=== PATIENT | male | born 1990 | race Caucasian/White ===

== ENCOUNTER 2021-08-08 12:19 | Emergency (ER) | payer BC, SELFPAY ==
[2021-08-08 12:29] VITALS: BP 170/77; PULSE 94; RESP 16; TEMP 36.7; O2SAT 100
[2021-08-08 13:03] LABS: Basophils Percent Auto 0.4 % (0.2-1.2); Eosinophils Percent Auto 0.8 % (0-4.4); Hematocrit 44.1 % (42.0-52.0); Hemoglobin 14.9 g/dL (14.0-18.0); Immature Granulocyte Absolute 0.02 K/mm3 (0.00-0.031); Immature Granulocyte Percent A 0.4 % (0-0.5); Lymphocytes Absolute Auto 1.84 K/mm3 (0.9-3.2); Lymphocytes Percent Auto 35.2 % (18.3-44.2); Mean Corpuscular HGB Conc 33.8 g/dl (32-36); Mean Corpuscular Hemoglobin 31.4 pg (26-34); Mean Corpuscular Volume 92.8 fl (80-100); Mean Platelet Volume 10.5 fl (7.4-10.4); Monocytes Absolute Auto 0.6 K/mm3 (0.1-0.6); Monocytes Percent Auto 10.7 % (2.6-8.5); Neutrophils Absolute Auto 2.8 K/mm3 (1.3-6.7); Neutrophils Percent Auto 52.5 % (45.5-73.1); Platelet Count Result 200 k/mm3 (150-375); Red Blood Count 4.75 M/mm3 (4.6-6.20); Red Cell Distribution Width 12.9 % (11.5-14.5); White Blood Count 5.2 K/mm3 (4.5-10.0)
--- NOTE | 2021-08-08 13:07 | ED.GENADULT ---
HPI - General Adult General Chief complaint: GI Bleed Stated complaint: Blood in stool Time Seen by Provider: 08/08/21 13:07 History of Present Illness HPI narrative: Patient is a 31-year-old male otherwise healthy who comes into the ED today because of blood in stool. Patient reports has had to balance today and has seen some blood in in both stools and on toilet paper both times. Says that the blood looks a little dark. Denies any black tar-like stools. Denies any abdominal pain or nausea or vomiting. He denies any rectal pain. No previous history of similar symptoms. He denies any history of hemorrhoids and does not feel anything that feels like a hemorrhoid in his rectum. Knows that he is on a full dose aspirin. Says he has been on this for a little over a month since he had COVID-19 as a recommendation to prevent clots. Does not have constipation issues. Related Data Home Medications Medication Instructions Recorded Confirmed aspirin 325 mg PO DAILY 08/08/21 08/08/21 Allergies Allergy/AdvReac Type Severity Reaction Status Date / Time No Known Allergies Allergy Mild Verified 08/08/21 13:15 Review of Systems Constitutional: Constitutional: Reports as per HPI, Denies fever(s), Denies night sweats and Denies weakness Cardiovascular: Cardiovascular: Denies chest pain, Denies edema, Denies leg edema, Denies dyspnea and Denies orthopnea Respiratory: Respiratory: Denies cough and Denies dyspnea Gastrointestinal: Gastrointestinal: Denies abdominal pain, Reports hematochezia, Denies constipation, Denies diarrhea, Denies nausea and Denies vomiting Musculoskeletal: Musculoskeletal: Denies abnormal gait, Denies back pain, Denies numbness and Denies tingling Neurologic: Denies Abnormal speech present, Denies abnormal gait, Denies numbness, Denies tingling and Denies weakness Psychiatric: Psychiatric: Denies homicidal ideation and Denies suicidal ideation Exam Const: General: cooperative, healthy appearing, comfortable, no acute distress, well developed, alert, awake and Physically active Orientation/consciousness: patient oriented x3 HENMT: Head: normal to inspection, normocephalic and atraumatic Ears: external ears normal General nose exam: Normal external nose present Eyes: Pupils: Equal, round and reactive pupils present EOM: EOMs intact bilaterally Neck: Neck: normal visual inspection Chest: Chest palpation & inspection: normal inspection of the chest and no tenderness Resp: Effort & Inspection: normal respiratory effort and able to speak in complete sentences Auscultation: clear to auscultation bilaterally Cardio: Rate: regular rate Rhythm: regular rhythm GI: Inspection: normal to inspection GI Palp: No abdominal tenderness Other: No abdominal tenderness to deep palpation. External rectum is normal. No external or internal hemorrhoids. No palpable fissures. : General: Yes no CVA tenderness Back/Spine/Pelvis: Back: no CVA tenderness Skin: General skin exam: normal color and no rashes or lesions noted Lesions: no lesions Neuro: General: patient oriented x3, no focal motor deficits and CN's II-XI intact bilaterally Cranial nerves: Yes Equal, round and reactive pupils present Speech: No Abnormal speech present Extrem: General: normal to inspection and full ROM Psych: Appearance: grossly normal and well kempt Mental Status: mental status grossly normal Speech and movement: Normal speech and movement present Affect: normal affect Thought process: Normal thought process present Course Vital Signs Vital signs: Vital Signs Temperature 36.7 C 08/08/21 12:29 Pulse Rate 94 08/08/21 12:29 Respiratory Rate 16 08/08/21 12:29 Blood Pressure 170/77 H 08/08/21 12:29 Pulse Oximetry 100 08/08/21 12:29 Temperature 36.7 C 08/08/21 12:29 Pulse Rate 81 08/08/21 14:03 Respiratory Rate 18 08/08/21 14:03 Blood Pressure 132/93 H 08/08/21 14:03 Pulse Oximetry 100 08/08/21 14
[2021-08-08 13:16] VITALS: BP 146/79; BP 146/89; PULSE 72; PULSE 80
[2021-08-08 13:17] VITALS: BP 134/87; PULSE 84
[2021-08-08 13:21] LABS: INR 0.9; Prothrombin Time 12.4 Seconds (11.1-14.7)
[2021-08-08 13:22] LABS: Partial Thromboplastin Time 27.6 SECONDS (22.3-36.8)
[2021-08-08 13:31] LABS: Alanine Aminotransferase 52 U/L (4-50); Albumin Level 4.5 g/dL (3.5-5.1); Alkaline Phosphatase 56 U/L (38-126); Anion Gap 8 mmol/L (8-16); Aspartate Amino Transferase 34 U/L (17-59); Bilirubin,Total 0.8 mg/dL (0.2-1.3); Blood Urea Nitrogen 11 mg/dL (9-20); Calcium 9.1 mg/dL (8.4-10.2); Carbon Dioxide 26 mmol/L (22-30); Chloride 106 mmol/L (98-107); Estimated CRCL calculation 130 ml/min; Estimated Glomerular Filt Rate > 60; Glucose 96 mg/dL (65-110); Potassium 5.1 mmol/L (3.4-5.0); Sodium 140 mmol/L (137-145)
[2021-08-08 14:03] VITALS: BP 132/93; PULSE 81; RESP 18; O2SAT 100
[2021-08-08 15:17] VITALS: BP 131/86; PULSE 70; RESP 16; O2SAT 98
== END 2021-08-08 15:18 | disposition home or self-care (01) ==
PROVIDERS: Emergency Medicine; Emergency Provider Emergency Medicine
DX: K92.1 Melena (principal); Z79.82 Long term (current) use of aspirin; Z86.16 Personal history of COVID-19
CPT/HCPCS: 36415; 80053; 85025; 85610; 85730; 86850; 86900; 86901; 99283

== ENCOUNTER 2022-08-28 17:24 | Observation (INO) | payer BC, SELFPAY ==
--- NOTE | ~2022-08-28 | CT_ITS ---
EXAMINATION: CT abdomen pelvis w con DATE: 08/28/2022 20:08 INDICATION: umbilical swelling and pain TECHNIQUE: Computed tomography (CT) of the abdomen and pelvis was performed with 100 mL Omnipaque-350 intravenous contrast. Automated exposure control and iterative reconstruction technique were employe d. The dose-length product was 888.75 mGy-cm. COMPARISON: None. FINDINGS: Lower thorax: Minimal left basilar atelectasis/scar Liver: Hepatomegaly. Somewhat heterogeneous fatty infiltration, with increased deposition near the li gamentum teres. Biliary/Gallbladder: Gallbladder is normal. No bile duct dilation. Pancreas: No mass or duct dilation. Spleen: Normal. Adrenals:No mass. Kidneys: No mass, stone, or hydronephrosis. GI tract: No small or large bowel dilation. Normal appendix. Diverticulosis without diverticulitis. Mesentery/Peritoneum: No ascites, mass, or free air. Retroperitoneum: No mass. Pelvis: Bladder wall thickening, likely due to lack of distention.. Soft Tissues: Uncomplicated appearing bilateral fat-containing inguinal hernias. 1.2 cm inflamed and fat-containing umbilical hernia Bones: No acute osseous finding. IMPRESSION: Hepatomegaly. Focal and diffuse hepatic steatosis. Inflamed, fat-containing umbilical hernia. Reviewed, dictated and finalized at location K. IMPRESSION: Hepatomegaly. Focal and diffuse hepatic steatosis. Inflamed, fat-containing umb ilical hernia.
[2022-08-28 18:02] VITALS: BP 173/93; PULSE 101; RESP 16; TEMP 36.9; O2SAT 100
--- NOTE | 2022-08-28 18:23 | ED.ABDPAIN ---
HPI - Abdominal Pain General Chief Complaint: Abdominal Pain Stated Complaint: abd pain Time Seen by Provider: 08/28/22 18:16 Source: patient and RN notes reviewed Mode of arrival: ambulatory Limitations: no limitations History of Present Illness HPI narrative: This is a 32 year old male who presents for evaluation of umbilical pain. He developed pain on Sunday and it has gradually worsened. He states he went to work but it was too painful. He states someone that was a PA suggested he come get CT abdomen. He denies fever, chill, nausea, vomiting or diarrhea. He has not taken any medication for pain. Related Data Home Medications Medication Instructions Recorded Confirmed aspirin 325 mg tablet 325 mg PO DAILY 08/08/21 08/08/21 Allergies Allergy/AdvReac Type Severity Reaction Status Date / Time No Known Allergies Allergy Mild Verified 08/28/22 18:07 Review of Systems Review of Systems: All systems reviewed & are unremarkable except as noted in HPI and below Constitutional: Constitutional: Denies chills, Denies fatigue and Denies fever(s) Cardiovascular: Cardiovascular: Denies chest pain Respiratory: Respiratory: Denies chest congestion and Denies dyspnea Gastrointestinal: Gastrointestinal: Reports abdominal pain, Denies diarrhea, Denies nausea and Denies vomiting Genitourinary: Genitourinary: Denies hematuria, Denies penile discharge and Denies testicular pain Integumentary/Breasts: Skin/Breast: Denies pruritus and Reports erythema PMFSH Past Medical History Medical History (Updated 08/28/22 @ 22:52 by Ekta Bocanegra MD) Patient denies medical problems Surgical History Surgical History (Updated 08/28/22 @ 22:49 by Ekta Bocanegra MD) No pertinent past surgical history Social History Social History (Updated 08/28/22 @ 22:49 by Ekta Bocanegra MD) Smoking status: Never smoker Exam Const: General: no acute distress and alert Nutritional Appearance: well nourished Orientation/consciousness: patient oriented x3 Limitations: no limitations HENMT: Head: normal to inspection Eyes: EOM: EOMs intact bilaterally Resp: Effort & Inspection: normal respiratory effort Cardio: Rate: regular rate Rhythm: regular rhythm Heart sounds: no murmurs GI: GI Palp: Yes Soft to palpation, Yes Tenderness to palpation present (GI) (tender umbilicus), No Guarding due to palpation present (GI), No Rigid due to palpation and Yes Hernia present (umbilical that his red and hard) Auscultation: normal bowel sounds Skin: Rashes: no rashes Other: umbilicus is red and firm, no drainage Neuro: General: patient oriented x3, moves all extremities and CN's II-XI intact bilaterally Cranial nerves: Yes Nystagmus not present Speech: normal speech Extrem: General: normal to inspection Psych: Mental Status: mental status grossly normal Affect: normal affect Attitude: cooperative Course Reevaluation(s) Reevaluation #1: Patient was given pain medication. I attemped to reduce but he was unable to tolerate. I spoke with Dr. Malhotra . PAtient would prefer admission vs follow up next week. Dr. Malhotra accepts patient to his service. NPO after midnight. Date: 08/28/22 Time: 22:50 Vital Signs Vital signs: Vital Signs Temperature 98.4 F 08/28/22 18:02 Pulse Rate 101 H 08/28/22 18:02 Respiratory Rate 16 08/28/22 18:02 Blood Pressure 173/93 H 08/28/22 18:02 Pulse Oximetry 100 08/28/22 18:02 Oxygen Delivery Room Air 08/28/22 18:02 Temperature 98.4 F 08/28/22 18:02 Pulse Rate 87 08/28/22 22:52 Respiratory Rate 16 08/28/22 22:52 Blood Pressure 140/78 08/28/22 22:52 Pulse Oximetry 99 08/28/22 22:52 Oxygen Delivery Room Air 08/28/22 18:02 MDM - Abdominal Pain Lab Data Attestation: I reviewed the patient's lab results. Result diagrams: 08/28/22 18:41 08/28/22 20:00 Labs: Lab Results 08/28/22 08/28/22 08/28/22 Range/U
[2022-08-28 18:55] LABS: Basophils Percent Auto 0.5 % (0.2-1.2); Eosinophils Absolute Auto 0.1 K/mm3 (0-0.3); Eosinophils Percent Auto 0.9 % (0-4.4); Hematocrit 44.7 % (42.0-52.0); Hemoglobin 15.5 g/dL (14.0-18.0); Immature Granulocyte Absolute 0.03 K/mm3 (0.00-0.031); Immature Granulocyte Percent A 0.4 % (0-0.5); Lymphocytes Percent Auto 26.3 % (18.3-44.2); Mean Corpuscular HGB Conc 34.7 g/dl (32-36); Mean Corpuscular Hemoglobin 31.4 pg (26-34); Mean Corpuscular Volume 90.7 fl (80-100); Mean Platelet Volume 10.2 fl (7.4-10.4); Monocytes Percent Auto 12.1 % (2.6-8.5); Neutrophils Absolute Auto 4.8 K/mm3 (1.3-6.7); Neutrophils Percent Auto 59.8 % (45.5-73.1); Platelet Count Result 276 k/mm3 (150-375); Red Blood Count 4.93 M/mm3 (4.6-6.20); Red Cell Distribution Width 12.8 % (11.5-14.5)
[2022-08-28 18:59] LABS: Add Urine Microscopic? NO; Appearance Urine Clear (Clear); Bilirubin Urine Negative (Negative); Blood Urine Negative (Negative); Color Urine Yellow (Yellow); Glucose Urine UA Negative (Negative); Ketones Urine Negative (Negative); Leukocyte Esterase Ur Negative LEU/UL (Negative); Nitrate Urine Negative (Negative); Protein Urine Negative (Negative); Specific Grav Ur 1.021 (1.001-1.035); Urobilinogen Urine Negative mg/dL (<2.0)
[2022-08-28 20:01] LABS: Estimated CRCL calculation 144 ml/min; Estimated Glomerular Filt Rate > 60
[2022-08-28 20:01] LABS: Alanine Aminotransferase 69 U/L (6-50); Albumin Level 4.7 g/dL (3.5-5.1); Alkaline Phosphatase 56 U/L (38-126); Anion Gap 12 mmol/L (8-16); Aspartate Amino Transferase 39 U/L (17-59); Bilirubin,Total 0.6 mg/dL (0.2-1.3); Blood Urea Nitrogen 12 mg/dL (9-20); Carbon Dioxide 24 mmol/L (22-30); Chloride 105 mmol/L (98-107); Estimated CRCL calculation 144 ml/min; Estimated Glomerular Filt Rate > 60; Glucose 86 mg/dL (65-110); Lipase 94 U/L (23-300); Potassium 3.9 mmol/L (3.4-5.0); Sodium 141 mmol/L (137-145)
[2022-08-28] MEDS: KETOROLAC 30 MG/ML VIAL (*BKC) IV PUSH (20:17)
[2022-08-28] MEDS: ONDANSETRON INJ 4 MG/2 ML VIAL IV PUSH (21:57)
[2022-08-28] MEDS: HYDROmorphone HCL INJ (*CRX) 1 MG/ML SYR 0.5 MG IV PUSH (21:57)
[2022-08-28 22:52] VITALS: BP 140/78; PULSE 87; RESP 16; O2SAT 99
[2022-08-28 23:55] VITALS: BMI 31.8
--- NOTE | 2022-08-28 23:57 | ADMGEN ---
This patient, Shahram Miller, was admitted to Medical Room 342-01. Patient/family oriented to hospital policies and general routines including ID bracelet, bed and alarms, visiting hours, pain management, procedures, bathroom and other care routines, personal items, smoking policy, room service/diet, and visiting hours. Information on how to activate the Rapid Response Team has been discussed. Patient/Family are encouraged to report perceived risks to care and to ask questions if they do not understand what they are told or what they should do.
[2022-08-29] VITALS (13 sets, daily range): BP systolic 120–152; BP diastolic 66–97; PULSE 57–99; RESP 16–20; TEMP 36.2–37.8; O2SAT 95–100
[2022-08-29] MEDS: SODIUM CHLORIDE 0.9% IV 1,000 ML 125 ML IV CONT ×2 (08:38)
--- NOTE | 2022-08-29 12:22 | PM.IMHP ---
H&P: HPI History of Present Illness Date/Time: 08/29/22 12:22 Chief Complaint: Umbilical pain Narrative: Patient is a 32-year-old man who 3 days ago was watching television and having a couple of beers. When he got up he noticed some pain in the umbilicus. He did not think much of it but this pain persisted that day and the next day. He thought he had a strained muscle. He went to work yesterday and while at work started experiencing severe pain in the umbilical area. He came to the emergency room yesterday evening. He was noted to have tenderness and a bulge at the umbilical area. He had a CT scan which showed a fat containing incarcerated umbilical hernia with inflammation associated with the incarcerated fat. The emergency room physician attempted to reduce the hernia but was unable to do so due to pain. Patient was brought into the hospital. His pain has improved but it has not gone away. He was seen in the hospital in still has an incarcerated umbilical hernia. He is taken to surgery today for repair with mesh. Review of Systems Review of Systems: All systems reviewed & are unremarkable except as noted in HPI and below (HPI and those items noted below) Constitutional: Constitutional: Denies chills and Denies fever(s) Cardiovascular: Cardiovascular: Denies chest pain, Denies diaphoresis, Denies dyspnea and Denies paroxysmal nocturnal dyspnea Respiratory: Respiratory: Denies chest congestion, Denies cough and Denies dyspnea Integumentary/Breasts: Skin/Breast: Denies lesions and Denies rash PMFSH Past Medical History Medical History (Updated 08/28/22 @ 22:52 by Ekta Bocanerga MD) Patient denies medical problems Surgical History Surgical History (Updated 08/28/22 @ 22:49 by Ekta Bocanegra MD) No pertinent past surgical history Family History Family History (Updated 08/28/22 @ 23:58 by Shanelle Goldstein RN) Grandparent Heart disease Diabetes mellitus Social History Social History (Updated 08/28/22 @ 22:49 by Ekta Bocanegra MD) Smoking status: Never smoker Alcohol intake: current Drinks per week: 60 Substance use: never Spiritual care concerns: No Meds Home Medications and Allergies Home Medications Medication Instructions Recorded Confirmed Type No Home Medications 08/28/22 08/28/22 History Allergies Allergy/AdvReac Type Severity Reaction Status Date / Time No Known Allergies Allergy Mild Verified 08/28/22 18:07 Vital Signs Vital Signs - 24 hr 08/28/22 18:02 08/28/22 22:52 08/29/22 00:24 Temperature 36.9 C 36.5 C Pulse Rate 101 H 87 68 Respiratory Rate 16 16 18 Blood Pressure 173/93 H 140/78 152/88 H Pulse Oximetry 100 99 98 Oxygen Delivery Room Air 08/29/22 05:22 Temperature 36.2 C L Pulse Rate 68 Respiratory Rate 18 Blood Pressure 142/81 H Pulse Oximetry 98 Oxygen Delivery Exam Const: General: comfortable, no acute distress, alert and awake Nutritional Appearance: well nourished Orientation/consciousness: patient oriented x3 HENMT: Head: normocephalic and atraumatic Mouth: Yes Normal oral and palatal mucosa present Eyes: Conjunctivae: conjunctivae normal Pupils: Equal, round and reactive pupils present EOM: EOMs intact bilaterally Neck: Neck: normal visual inspection, no lymphadenopathy and nontender Resp: Effort & Inspection: normal respiratory effort Auscultation: clear to auscultation bilaterally Cardio: Rate: regular rate Rhythm: regular rhythm Heart sounds: no gallops, no murmurs and no rubs GI: Inspection: non-distended, scaphoid and visible herniation (Umbilical hernia, slightly reddened) GI Palp: Yes Soft to palpation, Yes Tenderness to palpation present (GI) (Umbilicus), No Hepatomegaly present, No Splenomegaly present and Yes Hernia present (Incarcerated umbilical hernia) Auscultation: Hypoactive bowel sounds present Skin: Lesions: no lesions Rashes: no rashes Neuro: General: no focal motor deficits an
--- NOTE | 2022-08-29 12:30 | WPDHPUPDATE1 ---
History and Physical Update Update Date/Time: 08/29/22 12:30 History and Physical has been reviewed, including an updated exam of the patient. There are NO changes in the patient's condition. Risks, benefits, and alternatives have been discussed and questions answered. Patient agrees to proceed with procedure.
[2022-08-29] MEDS: LACTATED RINGERS 1,000 ML 30 ML IV CONT (13:00)
--- NOTE | 2022-08-29 13:02 | PC.NURSE ---
Pt transferred to [facility] @ [id number]
--- NOTE | 2022-08-29 13:32 | WPDANESEPPF ---
Anes - Initial Pre Proc Eval Procedure: Operation Date: 08/29/22 14:00 Proposed Procedures p Repair Incarcerated Umbilical Herrnia with Mesh - Celestine Malhotra MD Date/Time: 08/29/22 13:32 Surgeon: Celestine Malhotra MD Pre Op Diagnosis: incarcerated umbilical hernia Patient Data Age: 32 Gender: M Height: 1.83 m Weight: 106.3 kg Last Vital Signs Temp 36.2 C L 08/29/22 05:22 Pulse 68 08/29/22 05:22 Resp 18 08/29/22 05:22 BP 142/81 H 08/29/22 05:22 Pulse Ox 98 08/29/22 05:22 O2 Del Method Room Air 08/28/22 18:02 Allergies Allergy/AdvReac Type Severity Reaction Status Date / Time No Known Allergies Allergy Mild Verified 08/28/22 18:07 Home Medications Medication Instructions Recorded Confirmed Type No Home Medications 08/28/22 08/28/22 History Laboratory Tests 08/28/22 08/28/22 08/28/22 18:41 18:46 19:45 WBC 8.0 K/mm3 K/mm3 (4.5-10.0) RBC 4.93 M/mm3 M/mm3 (4.6-6.20) Hgb 15.5 g/dL g/dL (14.0-18.0) Hct 44.7 % % (42.0-52.0) MCV 90.7 fl fl (80-100) MCH 31.4 pg pg (26-34) MCHC 34.7 g/dl g/dl (32-36) RDW 12.8 % % (11.5-14.5) Plt Count 276 k/mm3 k/mm3 (150-375) MPV 10.2 fl fl (7.4-10.4) Immature Gran % (Auto) 0.4 % % (0-0.5) Neut % (Auto) 59.8 % % (45.5-73.1) Lymph % (Auto) 26.3 % % (18.3-44.2) [place] % (Auto) 12.1 % H % (2.6-8.5) Eos % (Auto) 0.9 % % (0-4.4) Baso % (Auto) 0.5 % % (0.2-1.2) Lymph # (Auto) 2.10 K/mm3 K/mm3 (0.9-3.2) [place] # (Auto) 1.0 K/mm3 H K/mm3 (0.1-0.6) Eos # (Auto) 0.1 K/mm3 K/mm3 (0-0.3) Baso # (Auto) 0.0 K/mm3 K/mm3 (0.0-0.1) Abs Immat Gran (auto) 0.03 K/mm3 K/mm3 (0.00-0.031) Absolute Neuts (auto) 4.8 K/mm3 K/mm3 (1.3-6.7) Absolute Nucleated RBC 0.0 K/mm3 K/mm3 (0.0-0.012) Nucleated RBC % 0.0 % % (0.0-0.2) Sodium 141 mmol/L mmol/L (137-145) Potassium 3.9 mmol/L mmol/L (3.4-5.0) Chloride 105 mmol/L mmol/L (98-107) Carbon Dioxide 24 mmol/L mmol/L (22-30) Anion Gap 12 mmol/L mmol/L (8-16) BUN 12 mg/dL mg/dL (9-20) Creatinine 0.80 mg/dL mg/dL (0.7-1.3) Estim Creat Clear Calc 144 ml/min ml/min Estimated GFR > 60 (59 - ) Glucose 86 mg/dL mg/dL (65-110) Calcium 9.0 mg/dL mg/dL (8.4-10.2) Total Bilirubin 0.6 mg/dL mg/dL (0.2-1.3) AST 39 U/L U/L (17-59) ALT 69 U/L H U/L (6-50) Alkaline Phosphatase 56 U/L U/L (38-126) Total Protein 8.0 g/dL g/dL (6.3-8.2) Albumin 4.7 g/dL g/dL (3.5-5.1) Lipase 94 U/L U/L (23-300) Urine Color Yellow (Yellow) Urine Appearance Clear (Clear) Urine pH 6.0 (5.0-9.0) Ur Specific [place] 1.021 (1.001-1.035) Urine Protein Negative mg/dL mg/dL (Negative) Urine Glucose (UA) Negative mg/dL mg/dL (Negative) Urine Ketones Negative mg/dL mg/dL (Negative) Ur Blood (Man) Negative (Negative) Urine Nitrate Negative (Negative) Urine Bilirubin Negative (Negative) Urine Urobilinogen Negative mg/dL mg/dL (<2.0) Leukocyte Esterase Rfl Negative LEAH/UL LEAH/UL (Negative) 08/28/22 20:00 WBC RBC Hgb Hct MCV MCH MCHC RDW Plt Count MPV Immature Gran % (Auto) Neut % (Auto) Lymph % (Auto) [place] % (Auto) Eos % (Auto) Baso % (Auto) Lymph # (Auto) [place] # (Auto) Eos # (Auto) Baso # (Auto) Abs Immat Gran (auto) Absolute Neuts (auto) Absolute Nucleated RBC Nucleated RBC %
[2022-08-29] MEDS: ceFAZolin 2 GM/D5W 50 ML 2 GM/50 ML BAG IVPB (14:07)
[2022-08-29] MEDS: BUPIVACAINE/EPINEPHRINE 0.25% 50 ML VIAL 30 ML INFILTRATE (15:00)
--- NOTE | 2022-08-29 15:42 | W.PM.PROC2 ---
Procedure Note - Detailed Date of Procedure 08/29/22 Pre-op Diagnosis incarcerated umbilical hernia Post-op Diagnosis Same Procedure Performed Repair incarcerated umbilical hernia with 6.[address] underlay hernia mesh Surgeon Celestine Malhotra MD Sdc Teacher Kamille Romero, [employer] Anesthesia General and Local (0.25% Marcaine with epinephrine) Indications Patient presented to the emergency room last night with a painful bulge in the umbilicus. Both exam and CT scan showed an incarcerated umbilical hernia containing fat. It was unable to be reduced. Patient has been quite uncomfortable and was placed in the hospital. He is taken to surgery now for repair of incarcerated umbilical hernia with mesh Findings There was some very inflamed and probably necrotic hernia sac and properitoneal fat. The hernia defect was about 1.5 by 0.5 cm. Description of Procedure Patient was taken to surgery and induced into general anesthesia. The abdomen is prepped and draped. The proposed incision along the upper margin of the umbilicus was marked on the skin. Local was infiltrated into the skin and the deeper subcutaneous tissues. Incision was made and dissection was carried down through the subcutaneous. We dissected over to the umbilical hernia. There was a lot inflammation and edema there. I dissected around the hernia sac circumferentially. I then opened the hernia sac and divided it. There was a lot of edematous thickened tissue within the hernia sac. I divided some of the subcutaneous beyond the umbilical skin. I was then able to bring up the undersurface of the umbilical skin and I removed some inflammatory tissue that was likely the remnants of the hernia sac from the skin. These were sent to pathology. I then excised hernia sac from the fascial edges. I pulled up some necrotic omentum that had been incarcerated in the hernia and excised that. This was also submitted. The pathology specimen submitted was incarcerated hernia sac and contents. From there I placed a finger in the hernia defect. There were no adhesions in the area. I undermined the subcutaneous around the hernia defect. I infiltrated additional local all around the hernia defect. I chose the 6.[address] hernia mesh. This was folded and placed in the defect. Once in the defect it was flattened and position symmetrically. I then placed cranial and caudal transfascial sutures with 0 Ethibond. Each of these sutures was placed in such a fashion as to draw the edges of the hernia defect towards 1 another once the sutures were tied. Time the sutures showed that this did have the desired effect. I then placed right and left lateral transfascial sutures of 0 Ethibond to secure the mesh in these 2 directions. Finally the hernia defect was closed with [id number] mattress sutures of 0 Ethibond. Each of these sutures incorporated a bit of mesh as well. The repair looked quite secure. I used an 0 Vicryl suture to suture the umbilical skin to the fascia. I then used 3-0 Vicryl subcutaneous and subcuticular sutures in interrupted fashion. Finally the skin was approximated with subcuticular interrupted 4-0 Vicryl suture. The skin was finally closed with a running 4-0 Monocryl skin suture. The wound was dressed with Exofin surgical adhesive. The patient was awakened and taken to recovery in good condition. Sponge and needle counts were correct x2. Implants 6.[address] mesh Estimated Blood Loss -5.0 Urine Output 200 Drains No Packing No Pathology Yes (Incarcerated hernia sac and contents) Complications No immediate complications Condition Stable Disposition PACU [facility] Billing Surgery - Charge Forward: Surgery Billing (Repair incarcerated umbilical hernia with mesh)
--- NOTE | 2022-08-29 16:53 | PC.NURSE ---
Pt returned to room from post op [id number]
[2022-08-29] MEDS: LACTATED RINGERS 1,000 ML 100 ML IV CONT (17:14)
[2022-08-29] MEDS: HYDROcodone/acetaminophen (*CRX) 5-325 MG TABLET 1 TAB PO (17:21)
[2022-08-29] MEDS: MORPHINE SULFATE (*CRX) 4 MG/ML INJ IV PUSH (20:07)
[2022-08-29] MEDS: HYDROcodone/acetaminophen (*CRX) 10-325 MG TABLET 1 TAB PO (21:23)
[2022-08-30 00:59] VITALS: BP 138/71; PULSE 84; RESP 18; TEMP 36.4; O2SAT 97
[2022-08-30] MEDS: MORPHINE SULFATE (*CRX) 4 MG/ML INJ IV PUSH (01:03)
[2022-08-30] MEDS: HYDROcodone/acetaminophen (*CRX) 5-325 MG TABLET 1 TAB PO (01:37)
[2022-08-30 05:15] VITALS: BP 136/83; PULSE 83; RESP 19; TEMP 36.4; O2SAT 97
[2022-08-30 05:49] LABS: Hemoglobin 14.7 g/dL (14.0-18.0); Mean Corpuscular HGB Conc 34.2 g/dl (32-36); Mean Corpuscular Hemoglobin 31.5 pg (26-34); Mean Corpuscular Volume 92.1 fl (80-100); Platelet Count Result 263 k/mm3 (150-375); Red Blood Count 4.67 M/mm3 (4.6-6.20); Red Cell Distribution Width 12.4 % (11.5-14.5); White Blood Count 12.3 K/mm3 (4.5-10.0)
[2022-08-30 06:07] LABS: Anion Gap 9 mmol/L (8-16); Blood Urea Nitrogen 12 mg/dL (9-20); Carbon Dioxide 27 mmol/L (22-30); Chloride 100 mmol/L (98-107); Estimated CRCL calculation 144 ml/min; Estimated Glomerular Filt Rate > 60; Glucose 112 mg/dL (65-110); Potassium 4.1 mmol/L (3.4-5.0); Sodium 136 mmol/L (137-145)
--- NOTE | 2022-08-30 08:07 | PM.DS ---
DS: Admitting Diagnosis Discharge Date 08/30/2022 Admitting Diagnosis incarcerated umbilical hernia DS: Discharge Diagnosis Discharge Diagnosis (1) Incarcerated umbilical hernia: Code(s): K42.0 - Umbilical hernia with obstruction, without gangrene Status: Acute Assessment and Plan: This was recognized during his hospital admission an ER visit. He had subsequent surgical intervention and had an uneventful recovery. DS: Summary Hospital Course Reason for hospitalization: incarcerated umbilical hernia Hospital Course: The patient had uneventful hospital course. Diagnosis was made by clinical signs and CT scan. Patient was taken the operating room and repair accomplished in an open manner with an underlay mesh. Patient was doing well the day post op #1. Status at Discharge Functional status at discharge: independent ambulation Overall status at discharge: patient is not back to baseline ( Will have lifting restriction for a while until healed.) Time Spent with Patient Time attestation: Total time spent providing and/or coordinating discharge services: Exam Const: General: cooperative, comfortable, alert and awake Orientation/consciousness: patient oriented x3 HENMT: Head: normal to inspection Mouth: Yes moist mucous membranes Eyes: Sclera: sclerae normal Pupils: Equal, round and reactive pupils present Neck: Neck: normal visual inspection and no JVD Chest: Chest palpation & inspection: normal inspection of the chest Resp: Effort & Inspection: normal respiratory effort Auscultation: clear to auscultation bilaterally Cardio: Jugular venous distension: no JVD Rate: regular rate GI: Inspection: incision ( Clean and dry with surgical glue in place) GI Palp: No abdominal tenderness, Yes Soft to palpation and Yes Tenderness to palpation present (GI) ( mild near incision which is appropriate) Auscultation: normal bowel sounds Neuro: General: patient oriented x3 Cranial nerves: Yes Equal, round and reactive pupils present DS: Data Data Completed and Pending Pending studies at discharge: Pending at discharge 08/29/22 14:37 Surgical [PTH] Routine Labs on day of discharge: Labs from last 24 hours 08/30/22 08/30/22 05:39 05:39 WBC 12.3 H RBC 4.67 Hgb 14.7 Hct 43.0 MCV 92.1 MCH 31.5 MCHC 34.2 RDW 12.4 Plt Count 263 MPV 10.0 Sodium 136 L Potassium 4.1 Chloride 100 Carbon Dioxide 27 Anion Gap 9 BUN 12 Creatinine 0.80 Estim Creat Clear Calc 144 Estimated GFR > 60 Glucose 112 H Calcium 9.0 Procedures/Treatments: open repair of incarcerated umbilical hernia with mesh Discharge Plan Discharge Attending physician on discharge: Celestine Malhotra Discharging Clinician: Juan Daniel Puri Anticipated Discharge Date/Time: 08/30/22 10:05 Patient Disposition: Home, Self-Care Activity: may shower, no straining and as tolerated Diet: as tolerated and regular Wound Care Instructions: incision open to air Discharge Instructions: Ambulate 3-4 x per day and as tolerated. No lifting over 15-20lbs. No heavy exertion or sports. May bathe or shower. Wash incision with soap and water. Stairs are OK. May drive a car in 2 days. Please call the office and schedule a follow-up appointment for approximately 2 weeks from now. Patient Instructions: Antibiotic Form Stand Alone Forms: General Discharge Information, Work/School Release IP Follow-up/Referrals: Celestine Malhotra MD [Physician] - 2 Weeks Discharge Medications: New hydrocodone-acetaminophen 5-325 mg tablet 1 - 2 tablet PO Q6H PRN (Reason: pain) Qty: 15 0RF ketorolac 10 mg tablet 10 mg PO Q6H 4 Days Qty: 16 0RF Date of admission: 08/28/22 22:46 Primary Care Provider: PHYSICIAN,SEO EXPERT Admitting Provider: Celestine Malhotra Attending physician on admission: Celestine Malhotra Condition: Improved
--- NOTE | 2022-08-30 09:28 | WPDANESPN ---
Anes - Prog Note Post-Op Date/Time: 08/30/22 09:28 Cardiovascular status: normal Respiratory status: normal Airway patency: baseline Mental status: baseline Post-Op hydration status: normal Vital Signs: Last Vital Signs Temp 97.6 F 08/30/22 05:15 Pulse 83 08/30/22 05:15 Resp 19 08/30/22 05:15 BP 136/83 08/30/22 05:15 Pulse Ox 97 08/30/22 05:15 O2 Del Method Room Air 08/29/22 16:16 O2 Flow Rate 08/29/22 15:40 Pain Score (VAS): 2 I/O: Intake & Output 08/29/22 08/30/22 08/30/22 23:59 07:59 15:59 Intake Total 840 150 240 Balance 840 150 240 Laboratory Tests 08/30/22 05:39 08/30/22 05:39 08/30/22 08/30/22 05:39 05:39 WBC 12.3 H RBC 4.67 Hgb 14.7 Hct 43.0 MCV 92.1 MCH 31.5 MCHC 34.2 RDW 12.4 Plt Count 263 MPV 10.0 Sodium 136 L Potassium 4.1 Chloride 100 Carbon Dioxide 27 Anion Gap 9 BUN 12 Creatinine 0.80 Estim Creat Clear Calc 144 Estimated GFR > 60 Glucose 112 H Calcium 9.0 Post-procedural complaints: none Patient Feedback: Patient satisfied with anesthetic care.
== END 2022-08-30 10:00 | disposition home or self-care (01) ==
LOC: ANHED 22:52 → ANH3MED 23:45
PROVIDERS: Emergency Medicine; Admitting Provider Surgery; Emergency Provider General Practice; Visit Provider Surgery
PROC: (CPT 49587; principal; 2022-08-29 14:00)
DX: K42.0 Umbilical hernia with obstruction, without gangrene (principal); R16.0 Hepatomegaly, not elsewhere classified; K76.0 Fatty (change of) liver, not elsewhere classified; F10.90 Alcohol use, unspecified, uncomplicated
CPT/HCPCS: 49587; 36415; 74177; 80048; 80053; 81003; 83690; 85025; 85027; 88302; 96361; 96365; 96375; 99285; A9270; C1781; G0378; J0330; J0690; J1100; J1170; J1885; J2250; J2270; J2405; J2704; J2710; J3010; J7030; J7120; Q9967

== ENCOUNTER 2022-10-10 16:25 | Emergency (ER) | payer BC, SELFPAY ==
[2022-10-10 16:50] VITALS: BP 146/87; PULSE 96; RESP 16; TEMP 36.8; O2SAT 99
--- NOTE | 2022-10-10 17:21 | ED.URI ---
HPI - URI/Sore Throat General Chief Complaint: Upper Respiratory Infection Stated Complaint: sorethroat,runny nose Time Seen by Provider: 10/10/22 17:21 Source: patient Mode of arrival: ambulatory Limitations: no limitations History of Present Illness HPI Narrative: 32-year-old male presents with complaint of nasal congestion, drainage, cough for 1 week. Reports right ear pain decreased hearing for the past 2 days. Afebrile. Taking Tylenol to treat his symptoms. All systems reviewed and negative except as noted above. Related Data Allergies Allergy/AdvReac Type Severity Reaction Status Date / Time No Known Allergies Allergy Mild Verified 09/25/22 09:46 Review of Systems Review of Systems: CONSTITUTIONAL: Denies fever, chills, or sweats. EYES: Denies visual changes, redness, or discharge. ENT: Reports rhinorrhea, congestion. Denies sore throat. Reports right ear pain. CARDIOVASCULAR: Denies chest pain, palpitations, or edema. RESPIRATORY: Reports cough. Denies dyspnea. GASTROINTESTINAL: Denies abdominal pain, nausea, vomiting, or diarrhea. GENITOURINARY: Denies dysuria or hematuria. SKIN: Denies rash or itching. MUSCULOSKELETAL: Denies back pain, joint pain, or myalgia. NEUROLOGIC: Denies headache, numbness, or weakness. PSYCHIATRIC: Denies anxiety or depression. All other systems reviewed are negative, except as documented in HPI. [facility] Past Medical History Medical History Alcohol abuse Patient denies medical problems Surgical History Surgical History History of incisional hernia repair inc umb hernia with 6.[address] underlay hernia mesh perf 08/29/22 Hx of tonsillectomy Family History Family History Grandparent Heart disease Diabetes mellitus Social History Social History Smoking status: Never smoker Alcohol intake: current Drinks per week: 60 Substance use: never Spiritual care concerns: No Comments At time of signature, agree with nursing past medical, surgical, social and family history. There is no relevant family history pertinent to the presenting complaint. Exam Narrative: GENERAL: This is a well-nourished, well-developed patient, in no apparent distress. HEAD: normocephalic, atraumatic. EYES: PERRL. Sclera clear/white. Vision is grossly intact. EARS: External ears normal, auditory canals clear and without drainage, erythema and fluid to right TM. Left TM normal. NOSE: External nose normal with Clear nasal drainage, erythema and swelling to both nares with moderate congestion. THROAT: Mucous membranes moist, Erythema to posterior pharynx with clear postnasal drainage. NECK: Neck supple, non-tender without lymphadenopathy, masses or thyromegaly. CARDIOVASCULAR: Regular rate and rhythm without murmurs, gallops, or rubs. RESPIRATORY: Clear to auscultation. Breath sounds equal bilaterally. No wheezes, rales, or rhonchi. SKIN: warm, Dry, intact with no suspicious lesions or rash, good texture and turgor. NEURO: awake, alert, and oriented to person, place and time. There were no obvious focal neurologic abnormalities. EXTREMITIES: No joint tenderness, effusion, or edema noted. Course Course Level of Care: Express Care Visit Vital Signs Vital signs: Vital Signs Temperature 36.8 C 10/10/22 16:50 Pulse Rate 96 10/10/22 16:50 Respiratory Rate 16 10/10/22 16:50 Blood Pressure 146/87 H 10/10/22 16:50 Pulse Oximetry 99 10/10/22 16:50 Oxygen Delivery Room Air 10/10/22 16:50 Temperature 36.8 C 10/10/22 16:50 Pulse Rate 96 10/10/22 16:50 Respiratory Rate 16 10/10/22 16:50 Blood Pressure 146/87 H 10/10/22 16:50 Pulse Oximetry 99 10/10/22 16:50 Oxygen Delivery Room Air 10/10/22 16:50 Reviewed
== END 2022-10-10 17:45 | disposition home or self-care (01) ==
PROVIDERS: Emergency Provider Nurse Practitioner Family
DX: J01.90 Acute sinusitis, unspecified (principal); H66.91 Otitis media, unspecified, right ear
CPT/HCPCS: 99213; G0463

== ENCOUNTER 2024-06-03 13:53 | Emergency (ER) | payer OTHER, SELFPAY ==
[2024-06-03 14:24] VITALS: BP 151/96; PULSE 90; RESP 18; TEMP 36.3; O2SAT 99
--- NOTE | 2024-06-03 14:25 | ED.URI ---
HPI - URI/Sore Throat General Chief Complaint: Upper Respiratory Infection Stated Complaint: sorethroat,congestion Source: patient and RN notes reviewed Mode of arrival: ambulatory Limitations: no limitations History of Present Illness HPI Narrative: 34-year-old male presented for complaint of headache, body aches, sinus pressure/congestion, cough, fever/chills. Onset yesterday. Reports this morning he had a temp up to 101. Took Tylenol. Denies sob, wheezing, n/v/d. MD elicited complaint: cough Related Data Home Medications Medication Instructions Recorded Confirmed No Home Medications 06/03/24 06/03/24 Allergies Allergy/AdvReac Type Severity Reaction Status Date / Time No Known Allergies Allergy Mild Verified 06/03/24 14:07 Review of Systems Review of Systems: CONSTITUTIONAL: Endorses malaise, chills, sweats, fever EYES: Denies visual changes, redness, or discharge ENT: Reports rhinorrhea, congestion, sore throat CARDIOVASCULAR: Denies chest pain, palpitations, edema RESPIRATORY: Reports cough, post nasal drainage. Denies dyspnea GASTROINTESTINAL: Denies abdominal pain, nausea, vomiting, diarrhea SKIN: Denies rash or itching MUSCULOSKELETAL: Endorses myalgia NEUROLOGIC: Endorses headache PMFSH Past Medical History Medical History Alcohol abuse Patient denies medical problems Surgical History Surgical History History of incisional hernia repair inc umb hernia with 6.[address] underlay hernia mesh perf 08/29/22 Hx of tonsillectomy Family History Family History Grandparent Heart disease Diabetes mellitus Social History Social History Smoking status: Never smoker Alcohol intake: current Drinks per week: 60 Substance use: never Spiritual care concerns: No Exam Narrative: GENERAL: Mildly Ill-appearing, nontoxic no acute distress. EYES: PERRLA, conjunctivae clear ENT: Mucous membranes moist. TM pearly wolf with dull light reflex bilaterally; no tragal tenderness. NECK: Supple. No lymphadenopathy CHEST: Clear to auscultation, breath sounds equal. No wheezing, rhonchi, rales, or stridor. No respiratory distress, speaks in full sentences. HEART: Regular rate and rhythm. No murmur heard. SKIN: Warm, dry, no rash. NEURO: Alert and oriented x3. PSYCH: Normal mood and affect Course Course Emergency Course: Patient is aware of diagnosis, understands and agrees to treatment plan. Anticipatory guidance given. Patient agrees to follow-up as directed and is aware of reasons to seek care at the emergency department. Portions of this record may have been created with voice recognition software Level of Care: Express Care Visit Vital Signs Vital signs: Vital Signs Temperature 97.4 F L 06/03/24 14:24 Pulse Rate 90 06/03/24 14:24 Respiratory Rate 18 06/03/24 14:24 Blood Pressure 151/96 H 06/03/24 14:24 Pulse Oximetry 99 06/03/24 14:24 Oxygen Delivery Room Air 06/03/24 14:24 Temperature 97.4 F L 06/03/24 14:24 Pulse Rate 90 06/03/24 14:24 Respiratory Rate 18 06/03/24 14:24 Blood Pressure 151/96 H 06/03/24 14:24 Pulse Oximetry 99 06/03/24 14:24 Oxygen Delivery Room Air 06/03/24 14:24 reviewed MDM - URI/Sore Throat MDM Narrative Medical decision making narrative: Discussed physical exam findings and positive COVID. Advised supportive measures and signs/symptoms to go to the ER. Pt is appropriate for outpt treatment and f/u. Differential Diagnosis Differential diagnosis: Likely upper respiratory infection, sinusitis and viral infection Discharge Plan Discharge Clinical Impression: COVID-19 Patient Disposition: Home, Self-Care Condition: Stable Instructions: COVID-19 (Coronavirus Disease 2019)
[2024-06-03 14:33] LABS: EDINFLUASCREEN Negative; EDINFLUBSCREEN Negative; EDSTREPNEGPOS1 Presumptive Negative
== END 2024-06-03 14:34 | disposition home or self-care (01) ==
PROVIDERS: Emergency Provider Nurse Practitioner Family
DX: U07.1 COVID-19 (principal)
CPT/HCPCS: 87081; 87426; 87804; 87880; 99213; G0463